=== PATIENT | female | born 1960 | race Caucasian/White ===

== ENCOUNTER 2016-03-21 17:05 | Emergency (ER) | payer OTHER ==
[2016-03-21] MEDS ORDERED: MORPHINE SULFATE 2 MG/ML SYRINGE IVP STA (17:28)
[2016-03-21] MEDS ORDERED: ASPIRIN 81 MG CHEW PO STA (17:28)
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
[2016-03-21 17:45] LABS: Basophils # (A) 0.1 k/uL (0-0.2); Basophils % (A) 0 %; CH 30.2; CHCM 31.7; Eosinophils # (A) 0.1 k/uL (0-0.7); Eosinophils % (A) 1 %; HDW 2.36; HGB 12.5 gm/dL (11.4-16.0); Luc # (Auto) 0.13; Luc % (Auto) 1; Lymphocytes # (A) 4.7 k/uL (1.0-4.8); Lymphocytes % (A) 39 %; MCHC 31.3 g/dL (31.0-37.0); MCV 95.9 fL (80.0-100.0); Mean Platelet Volume 7.3; Monocytes # (A) 0.5 k/uL (0-1.0); Monocytes % (A) 4 %; Neutrophils # (A) 6.6 k/uL (1.3-7.7); Neutrophils % (A) 54 %; RBC 4.18 m/uL (3.80-5.40); RDW 14.9 % (11.5-15.5); WBC 12.2 k/uL (3.8-10.6); WBC (Perox) 12.75
[2016-03-21 17:54] LABS: ALT 26 U/L (9-52); AST 16 U/L (14-36); Alkaline Phosphatase 62 U/L (38-126); Amylase 48 U/L (30-110); Anion Gap 11 mmol/L; Blood Urea Nitrogen 25 mg/dL (7-17); Calcium 9.3 mg/dL (8.4-10.2); Carbon Dioxide 29 mmol/L (22-30); Chloride 103 mmol/L (98-107); Glucose 99 mg/dL (74-99); Magnesium 2.1 mg/dL (1.6-2.3); Non-African American GFR(MDRD) >60 (>60 ml/min/1.73 sqM); Potassium 4.4 mmol/L (3.5-5.1); Sodium 143 mmol/L (137-145); Total Bilirubin 0.3 mg/dL (0.2-1.3); Total Protein 6.9 g/dL (6.3-8.2)
[2016-03-21 18:07] LABS: Creatine Kinase 22 U/L (30-135)
--- NOTE | 2016-03-21 18:08 | XR ---
EXAMINATION TYPE: XR chest 2V DATE OF EXAM: 03/21/2016 6:02 PM COMPARISON: 11/11/2015 HISTORY: Chest pain TECHNIQUE: Frontal and lateral views of the chest are obtained. FINDINGS: Heart and mediastinum are normal. There is slight blunting of left costophrenic angle. The re is hiatal hernia with fluid level. There are no hilar masses. There are chest leads. IMPRESSION: No active cardiopulmonary disease. There is pleural diaphragmatic scarring at the left l gerard base. Hiatal hernia. No change.
[2016-03-21 18:14] LABS: Partial Thromboplastin Time 27.2 sec (22.0-30.0); Prothrombin Time 9.8 sec (9.0-12.0)
[2016-03-21 18:20] LABS: Creatine Kinase MB 0.8 ng/mL (0.0-2.4); Troponin I <0.012 ng/mL (0.000-0.034)
[2016-03-21] MEDS ORDERED: RX INFO: IV CONTRAST WAS GIVEN 1 EACH MISC MISCELLANE PRN (19:41)
--- NOTE | 2016-03-21 20:53 | CT ---
EXAMINATION TYPE: CT chest angio for PE DATE OF EXAM: 03/21/2016 8:32 PM COMPARISON: 10/23/2014 HISTORY: Pt states of chest pains today. CT DLP: 158.9 mGycm Automated exposure control for dose reduction was used. CONTRAST: CT Chest for pulmonary embolism performed with with IV Contrast, patient injected with 75 mL of Omnip aque 350. There are 3-D post processed images. FINDINGS: There is diffuse pulmonary emphysema that is worse in the left upper lobe. There is no evidence of a pulmonary mass. There is subpleural consolidation in the right lower lobe. There is no pleural effusi on. There is a moderate-sized hiatal hernia. Heart size is normal. There is normal contrast opacification of the pulmonary arteries. I see no filling defect. There is n o evidence of aortic aneurysm or dissection. There is no pericardial effusion. IMPRESSION: No evidence of pulmonary embolism. There is diffuse pulmonary emphysema. There is a new pneumonic consolidation in the subpleural right lower lobe compared to old CT scan. Th is is consistent with pneumonia. Moderate-sized hiatal hernia.
[2016-03-21] MEDS ORDERED: LEVOFLOXACIN 750MG-D5W PMX 750 MG in DEXTROSE/WATER 1 150ML.BAG IVPB STA (20:59)
[2016-03-21] MEDS ORDERED: LEVOFLOXACIN 750 MG TAB PO STA (21:01)
[2016-03-21] MEDS ORDERED: HYDROcodone/APAP 5-325MG 1 EACH TAB PO STA (21:43)
[2016-03-21 21:55] VITALS: BP 100/63; PULSE 85; RESP 20; TEMP 97.4
== END 2016-03-21 21:55 | disposition home or self-care (01) ==
LOC: EC 17:05
DX: J18.9 Pneumonia, unspecified organism (principal); J44.9 Chronic obstructive pulmonary disease, unspecified; J45.909 Unspecified asthma, uncomplicated; E11.9 Type 2 diabetes mellitus without complications; E78.5 Hyperlipidemia, unspecified; M19.90 Unspecified osteoarthritis, unspecified site; F31.9 Bipolar disorder, unspecified; F41.0 Panic disorder [episodic paroxysmal anxiety]; F41.9 Anxiety disorder, unspecified; E07.9 Disorder of thyroid, unspecified; M79.7 Fibromyalgia; F17.200 Nicotine dependence, unspecified, uncomplicated; Z88.1 Allergy status to other antibiotic agents; Z88.8 Allergy status to other drugs, medicaments and biological substances; Z86.73 Personal history of transient ischemic attack (TIA), and cerebral infarction without residual deficits; Z79.84 Long term (current) use of oral hypoglycemic drugs; Z86.711 Personal history of pulmonary embolism; Z79.891 Long term (current) use of opiate analgesic; Z79.899 Other long term (current) drug therapy
CPT/HCPCS: 99285; 96374; 36415; 93005; 85379; 80053; 82150; 82550; 82553; 83690; 83735; 84484; 85025; 85610; 85730; 71020; 71275; Q9967; J2270

== ENCOUNTER 2016-03-29 19:03 | Emergency (ER) | payer OTHER ==
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
[2016-03-29 21:32] VITALS: RESP 16
[2016-03-29 22:25] VITALS: BP 117/68; PULSE 78; TEMP 98.2
== END 2016-03-29 22:20 | disposition home or self-care (01) ==
LOC: EC 19:03
DX: F32.9 Major depressive disorder, single episode, unspecified (principal); J45.909 Unspecified asthma, uncomplicated; J44.9 Chronic obstructive pulmonary disease, unspecified; E11.9 Type 2 diabetes mellitus without complications; E78.5 Hyperlipidemia, unspecified; M79.7 Fibromyalgia; E07.9 Disorder of thyroid, unspecified; F41.9 Anxiety disorder, unspecified; G89.29 Other chronic pain; G43.909 Migraine, unspecified, not intractable, without status migrainosus; R45.851 Suicidal ideations; Z79.84 Long term (current) use of oral hypoglycemic drugs; Z79.899 Other long term (current) drug therapy; Z88.8 Allergy status to other drugs, medicaments and biological substances; Z88.1 Allergy status to other antibiotic agents; Z86.73 Personal history of transient ischemic attack (TIA), and cerebral infarction without residual deficits; Z86.711 Personal history of pulmonary embolism; F17.200 Nicotine dependence, unspecified, uncomplicated
CPT/HCPCS: 80306; 82075; 99284

== ENCOUNTER → 2016-12-21 | Outpatient (CLI) | payer OTHER ==
[2016-12-21 11:45] LABS: Blood Urea Nitrogen 24 mg/dL (7-17); Non-African American GFR(MDRD) >60 (>60 ml/min/1.73 sqM)
--- NOTE | 2016-12-21 15:30 | CT ---
EXAMINATION TYPE: CT chest w con DATE OF EXAM: 12/21/2016 COMPARISON: 11/27/2015 HISTORY: Pulmonary nodule CT DLP: 194.40 mGycm, Automated exposure control for dose reduction was used. CONTRAST: Performed injected with 100 ml mL of Omnipaque 300. TECHNIQUE: Axial images were obtained at 5 mm thick sections. Reconstructed images are reviewed on [employer] computer in the coronal plane. FINDINGS: Portion of the thyroid visualized is normal. Emphysematous changes are at the bilateral lungs greater in the upper lung field. Subtle area of groundglass opacities in the posterior right midlung. Series 5 image 21. May be some s treak opacity within the posterior medial left midlung and in the left lung base. Previous density in the posterior lateral right upper lobe has diminished in size and intensity from the comparison. Series 5 image 18 No enlarged mediastinal or hilar adenopathy is evident. The ascending aorta diameter at the level o f the main pulmonary artery is 3.4 cm. The main pulmonary artery diameter at the bifurcation is 2.[address] sections are obtained through the upper abdomen. There is a moderate size hiatal hernia. U pper abdomen is essentially unremarkable. Note is made of a medial mid left renal cyst measuring 3.0 cm and 9 Hounsfield units. This may be somewhat larger than comparison. IMPRESSIONS: 1. Improving right upper lobe architectural distortion. Continued monitoring is recommended. 2. Small area of groundglass opacity posterior right midlung. Continued follow-up is recommended.. 3. Enlarging simple appearing left renal cyst
== END | disposition home or self-care (01) ==
LOC: RADCTMAIN 10:55
PROVIDERS: ATTEND Internal Medicine Hematology & Oncology
DX: R91.8 Other nonspecific abnormal finding of lung field (principal); R91.1 Solitary pulmonary nodule
CPT/HCPCS: 82565; 84520; 71260; Q9967

== ENCOUNTER 2017-12-31 14:13 | Emergency (ER) | payer OTHER ==
[2017-12-31 14:26] VITALS: BP 105/76; PULSE 68; RESP 18; TEMP 98.2
[2017-12-31] MEDS ORDERED: HYDROcodone/APAP 5-325MG 1 EACH TAB PO STA (15:13)
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
--- NOTE | 2017-12-31 15:42 | XR ---
EXAMINATION TYPE: XR lumbar spine 2 or 3V DATE OF EXAM: 12/31/2017 COMPARISON: 09/23/2012 HISTORY: Back pain TECHNIQUE: 3 views FINDINGS: The vertebra have normal alignment. Posterior elements are intact. Sacroiliac joints appear intact. There is no compression fracture. IMPRESSION: Negative lumbar spine exam. No fracture. No significant change.
--- NOTE | 2017-12-31 15:43 | XR ---
EXAMINATION TYPE: XR foot complete LT DATE OF EXAM: 12/31/2017 COMPARISON: NONE HISTORY: Foot pain TECHNIQUE: 3 views FINDINGS: There is moderate plantar calcaneal spurring. Metatarsals appear intact. I see no fracture nor dislocation. There are no erosions. IMPRESSION: Calcaneal spurring. No fracture seen.
--- NOTE | 2017-12-31 15:46 | XR ---
EXAMINATION TYPE: XR wrist complete RT DATE OF EXAM: 12/31/2017 COMPARISON: NONE HISTORY: Pain. Fell down the stairs. TECHNIQUE: 4 views FINDINGS: I see no fracture nor dislocation. Joint spaces are normal. There is some cystic changes in the distal capitate. IMPRESSION: No acute abnormality of the right wrist.
--- NOTE | 2017-12-31 15:47 | XR ---
EXAMINATION TYPE: XR ankle complete LT DATE OF EXAM: 12/31/2017 COMPARISON: NONE HISTORY: Foot and ankle pain TECHNIQUE: 3 views FINDINGS: Ankle mortise is anatomic. I see no fracture nor dislocation. There is a moderate plantar c alcaneal spur. There are small Achilles calcaneal spur. IMPRESSION: Calcaneal spurring. No fracture seen.
== END 2017-12-31 16:58 | disposition home or self-care (01) ==
LOC: EC 14:13
DX: M25.531 Pain in right wrist (principal); M25.572 Pain in left ankle and joints of left foot; M54.5 Low back pain; J44.9 Chronic obstructive pulmonary disease, unspecified; E11.9 Type 2 diabetes mellitus without complications; M79.7 Fibromyalgia; E78.5 Hyperlipidemia, unspecified; M19.90 Unspecified osteoarthritis, unspecified site; E07.9 Disorder of thyroid, unspecified; G43.909 Migraine, unspecified, not intractable, without status migrainosus; F31.9 Bipolar disorder, unspecified; F41.0 Panic disorder [episodic paroxysmal anxiety]; F60.3 Borderline personality disorder; F25.9 Schizoaffective disorder, unspecified; F17.200 Nicotine dependence, unspecified, uncomplicated; Z86.711 Personal history of pulmonary embolism; Z86.73 Personal history of transient ischemic attack (TIA), and cerebral infarction without residual deficits; Z79.51 Long term (current) use of inhaled steroids; Z79.891 Long term (current) use of opiate analgesic; Z79.84 Long term (current) use of oral hypoglycemic drugs; Z79.899 Other long term (current) drug therapy; Z88.1 Allergy status to other antibiotic agents; Z88.8 Allergy status to other drugs, medicaments and biological substances; W10.9XXA Fall (on) (from) unspecified stairs and steps, initial encounter
CPT/HCPCS: 29125; 72100; 99283

== ENCOUNTER → 2018-02-21 | Outpatient (CLI) | payer OTHER ==
--- NOTE | 2018-02-21 12:50 | XR ---
EXAMINATION TYPE: XR chest 2V DATE OF EXAM: 02/21/2018 COMPARISON: 03/21/2016 TECHNIQUE: PA and lateral views submitted. HISTORY: Cough, COPD FINDINGS: Postsurgical change left shoulder. Arthropathy of the right shoulder. Biapical pleural thickening. No consolidation or pneumothorax. Hypertrophic and degenerative change of the spine. Hyperinflation sug gests COPD. IMPRESSION: 1. Findings are suggestive of COPD.
--- NOTE | 2018-02-21 14:37 | BD ---
EXAMINATION TYPE: Axial Bone Density DATE OF EXAM: 02/21/2018 COMPARISON: DEXA bone scan 2014 CLINICAL HISTORY: Postmenopausal female with osteoporosis per order. Height: 5 FT 2IN Weight: 152 FRAX RISK QUESTIONS: Glucocorticoids (More than 3mos): YES (Ex: prednisone, prednisolone, methylprednisolone, dexamethasone, and hydrocortisone). History of Fracture in Adulthood: YES Secondary Osteoporosis: 3. Menopause before 45: YES Current Tobacco Use: YES RISK FACTORS HISTORY OF: Active: YES Postmenopausal woman: PART HYST AGE 29, OVARIES REMOVED AGE 54 MEDICATIONS: Prednisone or other steroids: YES How Lon YEARS NEEDED Thyroid Medications: YES Which medication: SYNTRHOID How Lon YEARS Additional Medications: SYNTHROID,GLUCOPHAGE, Additional History: EXAM MEASUREMENTS: Bone mineral densitometry was performed using the [employer] System. Bone mineral density as measured about the Lumbar spine is: ----- L1-L4(G/cm2): 0.999 T Score Values are as follows: ----- L2: -1.7 ----- L3: -0.6 ----- L4: -2.0 ----- L1-L4: -1.5 Bone mineral density has: DECREASED -3.8 % since study of: 2014 Bone mineral density about the R hip (g/cm2): 0.626 Bone mineral density about the L hip (g/cm2): 0.710 T Score values are as follows: -----R Neck: -3.0 -----L Neck: -2.4 -----R Total: -2.4 -----L Total: -2.0 Bone mineral density has: DECREASED -11.1 % since study of: 2014 IMPRESSION: Osteoporosis (T Score less than -2.5) remains present in the right hip. There remains increased fracture risk and therapy is usually indicated based on age. Re-Screen 1-2 years. NOTE: T-SCORE=SD OF THE YOUNG ADULT MEAN.
--- NOTE | 2018-02-22 11:30 | MM ---
Reason for exam: screening (asymptomatic). Last mammogram was performed 2 years and 4 months ago. History: Patient is postmenopausal. Family history of breast cancer in aunt. Physical Findings: A clinical breast exam by your physician is recommended on an annual basis and results should be correlated with mammographic findings. MG Screening Mammo w CAD Bilateral CC, MLO, and XCCL view(s) were taken. Prior study comparison: October 29, 2015, bilateral MG screening mammo w CAD. November 19, 2013, bilateral MG screening mammo w CAD. There are scattered fibroglandular densities. There are benign appearing round calcifications in the left breast. Asymmetric breast tissue in the left breast, stable. There is no discrete abnormality. ASSESSMENT: Benign, BI-RAD 2 RECOMMENDATION: Routine screening mammogram of both breasts in 1 year.
== END ==
LOC: RADMAMWWP 09:29
PROVIDERS: ATTEND Internal Medicine
DX: Z12.31 Encounter for screening mammogram for malignant neoplasm of breast (principal); M81.0 Age-related osteoporosis without current pathological fracture; Z72.0 Tobacco use
CPT/HCPCS: 71046; 77067; 77080

== ENCOUNTER → 2019-01-18 | Outpatient (CLI) | payer OTHER | END | disposition home or self-care (01) | LOC: LABWHC1 15:11 | PROVIDERS: ATTEND Psychiatry & Neurology Psychiatry | DX: F31.9 Bipolar disorder, unspecified (principal) | CPT/HCPCS: 36415; 80164; 84450; 84460 ==

== ENCOUNTER → 2019-08-26 | Outpatient (CLI) | payer OTHER ==
[2019-08-26 14:56] LABS: Anisocytosis Slight; Basophils % (A) 1 %; Eosinophils # (A) 0.1 k/uL (0-0.7); Eosinophils % (A) 2 %; HCT 40.7 % (34.0-46.0); HGB 12.5 gm/dL (11.4-16.0); Hypochromasia Slight; Lymphocytes # (A) 2.7 k/uL (1.0-4.8); Lymphocytes % (A) 34 %; MCH 28.5 pg (25.0-35.0); MCHC 30.6 g/dL (31.0-37.0); MCV 93.3 fL (80.0-100.0); Mean Platelet Volume 6.8; Monocytes # (A) 0.4 k/uL (0-1.0); Monocytes % (A) 5 %; Neutrophils # (A) 4.4 k/uL (1.3-7.7); Neutrophils % (A) 56 %; Platelet Count 377 k/uL (150-450); RBC 4.36 m/uL (3.80-5.40); RDW 16.3 % (11.5-15.5); WBC 7.8 k/uL (3.8-10.6)
[2019-08-27 02:23] LABS: ALT 29 U/L (8-44); AST 23 U/L (13-35); African American GFR (CKD) 109.1 (60.0-200.0); Albumin/Globulin Ratio 1.76 (1.60-3.17); Alkaline Phosphatase 85 U/L (41-126); BUN/Creat Ratio 15.71 Ratio (12.00-20.00); Bilirubin, Conjugated <0.20 mg/dL (0.20-0.40); Calcium 9.4 mg/dL (8.7-10.3); Carbon Dioxide 28.1 mmol/L (21.6-31.8); Chloride 103 mmol/L (96-109); Chol/HDL Ratio 4.33; Cholesterol 277 mg/dL (0-200); Globulin 2.5 g/dL (1.6-3.3); Glucose 97 mg/dL (70-110); LDL Cholesterol,Calculated 170.2 mg/dL (0.0-131.0); Non-African American GFR(CKD) 94.2 (60.0-200.0); Potassium 4.6 mmol/L (3.5-5.5); Sodium 139 mmol/L (135-145); Total Bilirubin 0.2 mg/dL (0.3-1.2); Total Protein 6.9 g/dL (6.2-8.2)
== END | disposition home or self-care (01) ==
LOC: LABWHC1 13:18
PROVIDERS: ATTEND Nurse Practitioner Family
DX: E78.00 Pure hypercholesterolemia, unspecified (principal); E78.5 Hyperlipidemia, unspecified; Z51.81 Encounter for therapeutic drug level monitoring; E55.9 Vitamin D deficiency, unspecified
CPT/HCPCS: 36415; 80053; 80061; 82248; 82306; 84439; 84443; 85025

== ENCOUNTER → 2019-10-14 | Outpatient (CLI) | payer OTHER ==
[2019-10-15 01:29] LABS: Valproic Acid (Depakene) 70.4 ug/mL (50.0-100.0)
== END | disposition home or self-care (01) ==
LOC: LABWHC1 12:37
PROVIDERS: ATTEND Psychiatry & Neurology Psychiatry
DX: F31.9 Bipolar disorder, unspecified (principal)
CPT/HCPCS: 36415; 80164; 84450; 84460

== ENCOUNTER → 2020-09-25 | Outpatient (CLI) | payer OTHER ==
--- NOTE | 2020-09-27 09:24 | CTL ---
EXAMINATION TYPE: CT Low Dose Lung DATE OF EXAM ORDERED: 09/25/2020 COMPARISON: 12/21/2016 HISTORY: . Low Dose CT Lung Screening CT DLP: 86.[address] CTDI: 2.40 mGy IV CONTRAST USED: None. SCREENING VISIT: First visit COMPARISON: None. TECHNIQUE: Low dose computed tomography scan was performed through the chest at 1 millimeter thick se ctions and reconstructed images in the coronal plane at [address] DIAGNOSTIC QUALITY: Satisfactory FINDINGS: LUNG NODULES: Not presentLeft lung: no nodules identified.Right lung: no nodules identified. LUNGS: COPD: Severity: Moderate upper lobe emphysematous changes. Fibrosis: Severity:None Lymph nodes: None Other findings: None RIGHT PLEURAL SPACE: Effusion: None Calcification: None Thickening: None Pneumothorax: None LEFT PLEURAL SPACE: Effusion: None Calcification: None Thickening: Stable left lower lobe pleural thickening. Pneumothorax: None HEART: Heart Size: Mildly enlarged Coronary calcification: Mild Pericardial effusion: None OTHER FINDINGS: Upper abdomen: Fixed hiatal hernia demonstrated. Bony thorax: Degenerative changes Supraclavicular region: No significant abnormalityOther: No significant abnormalityI IMPRESSION: Emphysematous change without suspicious nodule. FOLLOW UP CT CHEST RECOMMENDATION: Follow-up screening in one year. Smoking cessation advised. CT LUNG RAD: LUNG RAD CATEGORY 1 negative
== END | disposition home or self-care (01) ==
LOC: RADCTMAIN 17:13
PROVIDERS: ATTEND Family Medicine
DX: Z12.2 Encounter for screening for malignant neoplasm of respiratory organs (principal); J43.9 Emphysema, unspecified
CPT/HCPCS: 71271

== ENCOUNTER → 2020-11-27 | Outpatient (CLI) | payer OTHER ==
[2020-11-27 23:18] LABS: Basophils # (A) 0.04 X 10*3/uL (0.00-0.10); Basophils % (A) 0.3 %; Eosinophils # (A) 0.06 X 10*3/uL (0.04-0.35); Eosinophils % (A) 0.5 %; HCT 39.9 % (37.2-46.3); HGB 12.5 g/dL (12.0-15.0); Lymphocytes # (A) 3.49 X 10*3/uL (0.90-5.00); Lymphocytes % (A) 29.7 %; MCH 27.8 pg (27.0-32.0); MCHC 31.3 g/dL (32.0-37.0); MCV 88.9 fL (80.0-97.0); Mean Platelet Volume 9.8 fL (9.5-12.2); Monocytes # (A) 0.37 X 10*3/uL (0.20-1.00); Monocytes % (A) 3.1 %; Neutrophils # (A) 7.74 X 10*3/uL (1.80-7.70); Neutrophils % (A) 65.9 %; Platelet Count 395 X 10*3/uL (140-440); RBC 4.49 X 10*6/uL (4.10-5.20); RDW 16.4 % (11.5-14.5); WBC 11.76 X 10*3/uL (4.50-10.00)
[2020-11-28 00:49] LABS: Hemoglobin A1C 9.7 % (4.0-6.0)
[2020-11-28 04:30] LABS: African American GFR (CKD) 91.6 (60.0-200.0); Albumin 4.9 g/dL (3.80-4.90); Albumin/Globulin Ratio 2.04 (1.60-3.17); Anion Gap 10.6 mmol/L (4.00-12.00); BUN/Creat Ratio 11.25 Ratio (12.00-20.00); Calcium 9.6 mg/dL (8.7-10.3); Carbon Dioxide 23.4 mmol/L (21.6-31.8); Chol/HDL Ratio 3.12; Globulin 2.4 g/dL (1.6-3.3); LDL Cholesterol,Calculated 81.4 mg/dL (0.0-131.0); Potassium 4.3 mmol/L (3.5-5.5); Total Bilirubin 0.4 mg/dL (0.3-1.2); Total Protein 7.3 g/dL (6.2-8.2); VLDL Calculation 26.6 mg/dL (5.00-40.00)
== END | disposition home or self-care (01) ==
LOC: LABWHC1 15:00
PROVIDERS: ATTEND Family Medicine
DX: Z00.00 Encounter for general adult medical examination without abnormal findings (principal); E11.9 Type 2 diabetes mellitus without complications
CPT/HCPCS: 36415; 80053; 80061; 83036; 84443; 85025; 87522

== ENCOUNTER → 2021-01-14 | Outpatient (CLI) | payer OTHER ==
--- NOTE | 2021-01-18 10:10 | MM ---
Reason for exam: screening (asymptomatic). Last mammogram was performed 2 years and 11 months ago. History: Patient is postmenopausal. Family history of breast cancer in aunt. Took hormonal contraceptives for 1 year. Physical Findings: A clinical breast exam by your physician is recommended on an annual basis and results should be correlated with mammographic findings. MG Screening Mammo w CAD Bilateral CC and MLO view(s) were taken. Prior study comparison: February 21, 2018, bilateral MG screening mammo w CAD. October 29, 2015, bilateral MG screening mammo w CAD. There are scattered fibroglandular densities. Global asymmetry 12 o'clock left breast. No significant changes when compared with prior studies. ASSESSMENT: Benign, BI-RAD 2 RECOMMENDATION: Routine screening mammogram of both breasts in 1 year.
== END | disposition home or self-care (01) ==
LOC: RADMAMWWP 14:40
PROVIDERS: ATTEND Family Medicine
DX: Z12.31 Encounter for screening mammogram for malignant neoplasm of breast (principal); Z80.3 Family history of malignant neoplasm of breast; Z78.0 Asymptomatic menopausal state
CPT/HCPCS: 77067

== ENCOUNTER → 2021-07-05 | Outpatient (CLI) | payer OTHER ==
--- NOTE | 2021-07-06 02:03 | MR ---
EXAMINATION TYPE: MR knee LT wo con DATE OF EXAM: 07/05/2021 COMPARISON: None HISTORY: Left knee pain. Multiplanar multiecho imaging of the left knee without contrast. There is mild knee joint effusion. Anterior and posterior cruciate ligaments are intact. The patella is intact. There is mild narrowing of the medial joint space. The collateral ligaments are intact. Th ere is horizontal tear of the posterior horn of the medial meniscus that extends to the inferior surf gudelia. The lateral meniscus appears intact. No evidence of a fracture. There is mild subcutaneous edema anterior to the patella. IMPRESSION: There is horizontal tear of the posterior horn medial meniscus. No evidence of ligamentous tear. Knee joint effusion and mild osteoarthritis in the medial joint space. Subcutaneous anterior edema.
== END | disposition home or self-care (01) ==
LOC: RADMRIMAIN 18:25
PROVIDERS: ATTEND Orthopaedic Surgery
DX: M17.12 Unilateral primary osteoarthritis, left knee (principal); M23.322 Other meniscus derangements, posterior horn of medial meniscus, left knee

== ENCOUNTER → 2021-08-20 | Outpatient (CLI) | payer OTHER ==
--- NOTE | 2021-08-21 05:29 | MR ---
EXAMINATION TYPE: MR lumbar spine wo con DATE OF EXAM: 08/20/2021 COMPARISON: None HISTORY: Low back pain that radiates down both legs. Multiplanar multiecho imaging of the lumbar spine with no contrast. Lumbar vertebrae have normal alignment. Disc spaces are fairly normal for age. There is a small poste rior disc bulge at L5-S1. There is developmentally adequate spinal canal. No spinal stenosis. Lumbar nerve roots appear fairly normal. There is no neural foraminal narrowing. No evidence of focal bone d estruction. No lumbar paraspinal mass. No compression fracture. There is 3 cm cortical cyst medial le ft kidney. IMPRESSION: Small posterior L5-S1 disc bulging. No spinal stenosis. No fracture.
== END | disposition home or self-care (01) ==
LOC: RADMRIMAIN 19:29
PROVIDERS: ATTEND Nurse Practitioner Family
DX: M51.17 Intervertebral disc disorders with radiculopathy, lumbosacral region (principal)
CPT/HCPCS: 72148

== ENCOUNTER → 2021-09-28 | Outpatient (CLI) | payer OTHER ==
[2021-09-28 19:05] LABS: ALT 18 U/L (8-44); AST 24 U/L (13-35); African American GFR (CKD) 108.1 (60.0-200.0); Albumin 4.4 g/dL (3.8-4.9); Albumin/Globulin Ratio 1.65 (1.60-3.17); Alkaline Phosphatase 92 U/L (41-126); BUN/Creat Ratio 10.35 Ratio (12.00-20.00); Blood Urea Nitrogen 7.1 mg/dL (9.0-27.0); Calcium 9.5 mg/dL (8.7-10.3); Carbon Dioxide 24.5 mmol/L (20.0-27.5); Chloride 102 mmol/L (96-109); Chol/HDL Ratio 4.35 Ratio; Globulin 2.7 g/dL (1.6-3.3); Glucose 125 mg/dL (70-110); LDL Cholesterol,Calculated 87.6 mg/dL (0.0-131.0); Non-African American GFR(CKD) 93.3 (60.0-200.0); Potassium 4.7 mmol/L (3.5-5.5); Sodium 142 mmol/L (135-145); Total Bilirubin <0.15 mg/dL (0.30-1.20); Total Protein 7.1 g/dL (6.2-8.2)
[2021-09-28 19:18] LABS: Basophils # (A) 0.03 X 10*3/uL (0.00-0.10); Basophils % (A) 0.3 %; Eosinophils # (A) 0.07 X 10*3/uL (0.04-0.35); Eosinophils % (A) 0.8 %; HCT 36.8 % (37.2-46.3); HGB 10.5 g/dL (12.0-15.0); Immature Grans, Automated 0.3 %; Lymphocytes # (A) 2.68 X 10*3/uL (0.90-5.00); Lymphocytes % (A) 28.8 %; MCH 23.6 pg (27.0-32.0); MCHC 28.5 g/dL (32.0-37.0); MCV 82.7 fL (80.0-97.0); Mean Platelet Volume 9.4 fL (9.5-12.2); Monocytes % (A) 4.3 %; NRBC Per 100 WBC 0 /100 WBCS (0.0-0.0); Neutrophils # (A) 6.09 X 10*3/uL (1.80-7.70); Neutrophils % (A) 65.5 %; Platelet Count 463 X 10*3/uL (140-440); RBC 4.45 X 10*6/uL (4.10-5.20); RDW 19.2 % (11.5-14.5)
[2021-09-28 19:44] LABS: Valproic Acid (Depakene) 52.3 ug/mL (50.0-100.0)
== END | disposition home or self-care (01) ==
LOC: LABWHC1 10:53
PROVIDERS: ATTEND Family Medicine
DX: Z00.00 Encounter for general adult medical examination without abnormal findings (principal); E78.2 Mixed hyperlipidemia; E03.9 Hypothyroidism, unspecified; F25.0 Schizoaffective disorder, bipolar type
CPT/HCPCS: 36415; 80053; 80061; 80164; 83036; 84443; 85025

== ENCOUNTER → 2022-02-22 | Outpatient (CLI) | payer OTHER ==
--- NOTE | 2022-02-23 09:04 | XR ---
EXAMINATION TYPE: XR shoulder complete LT DATE OF EXAM: 02/22/2022 COMPARISON: NONE HISTORY: Pain TECHNIQUE: Three views are submitted. FINDINGS: The osseous structures are intact. There is no acute fracture or dislocation. The AC joint is widen ed which may be postsurgical. There is postoperative change involving the humeral head suggestive of rotator cuff surgery. IMPRESSION: 1. No acute fracture. Postsurgical changes involving the left shoulder. Widening of the left AC joint likely postsurgical correlate clinically.
--- NOTE | 2022-02-23 09:07 | XR ---
EXAMINATION TYPE: XR cervical spine comp DATE OF EXAM: 02/22/2022 COMPARISON: NONE HISTORY: Pain TECHNIQUE: Four views are submitted. FINDINGS: The odontoid is intact. There are no compression deformities. The prevertebral soft tissue structur es are within normal limits. Large hypertrophic spurs are seen anteriorly. There is diffuse osteopen ia. Facet arthropathy at all levels with degenerative disc disease particularly noted at C5-C6 with p osterior spondylosis. Suspect bilateral foraminal encroachment at this level. IMPRESSION: 1. Severe degenerative disc disease C5-C6 with bilateral foraminal protrusions suspected. 2. multilevel facet arthropathy recommend follow-up MRI. 3. Diffuse osteopenia.
== END | disposition home or self-care (01) ==
LOC: RADXRMAIN 16:16
PROVIDERS: ATTEND Family Medicine
DX: M47.812 Spondylosis without myelopathy or radiculopathy, cervical region (principal); M50.322 Other cervical disc degeneration at C5-C6 level; M85.88 Other specified disorders of bone density and structure, other site; M25.512 Pain in left shoulder
CPT/HCPCS: 72050

== ENCOUNTER → 2022-12-30 | Outpatient (CLI) | payer OTHER ==
--- NOTE | 2022-12-30 14:42 | XR ---
EXAMINATION TYPE: XR chest 2V DATE OF EXAM: 12/30/2022 2:37 PM COMPARISON: Chest radiographs from 02/21/2018 TECHNIQUE: XR chest 2V Frontal and lateral views of the chest. CLINICAL INDICATION:Female, 62 years old with history of J44.1; FINDINGS: Lungs/Pleura: There is no evidence of pleural effusion, focal consolidation, or pneumothorax. Chroni c senescent parenchymal change. Hyperinflation with increased AP diameter. Pulmonary vascularity: Unremarkable. Heart/mediastinum: Cardiomediastinal silhouette is unremarkable. Atherosclerotic calcifications are seen in the aorta. Musculoskeletal: No acute osseous pathology. Degenerative changes of the thoracic spine. Orthopedic a nchor within the left humeral head. IMPRESSION: 1. No acute cardiopulmonary disease/process. 2. Possible COPD.
[2022-12-31 00:56] LABS: ALT 20 U/L (8-44); AST 11 U/L (13-35); Albumin 4.6 d/dL (3.8-4.9); Albumin/Globulin Ratio 1.59 Ratio (1.60-3.17); Alkaline Phosphatase 92 U/L (41-126); BUN/Creat Ratio 24.67 Ratio (12.00-20.00); Blood Urea Nitrogen 14.8 mg/dL (9.0-27.0); Calcium 10.7 mg/dL (8.7-10.3); Carbon Dioxide 22.3 mmol/L (21.6-31.8); Chloride 102 mmol/L (96-109); Globulin 2.9 d/dL (1.6-3.3); Glucose 148 mg/dL (70-110); Potassium 4.8 mmol/L (3.5-5.5); Sodium 142 mmol/L (135-145); Total Bilirubin <0.2 mg/dL (0.3-1.2); Total Protein 7.5 d/dL (6.2-8.2)
[2022-12-31 01:39] LABS: Basophils # (A) 0.01 X 10*3/uL (0.00-0.10); Basophils % (A) 0.1 %; Eosinophils # (A) 0 X 10*3/uL (0.04-0.35); Eosinophils % (A) 0 %; HCT 41.5 % (37.2-46.3); HGB 12.1 d/dL (12.0-15.0); Lymphocytes # (A) 2.75 X 10*3/uL (0.90-5.00); Lymphocytes % (A) 22.4 %; MCH 23.4 pg (27.0-32.0); MCHC 29.2 d/dL (32.0-37.0); MCV 80.3 FL (80.0-97.0); Mean Platelet Volume 9.3 FL (9.5-12.2); Monocytes # (A) 0.83 X 10*3/uL (0.20-1.00); Monocytes % (A) 6.8 %; NRBC Per 100 WBC 0 X 10*3/uL (0.00-0.01); Neutrophils # (A) 8.62 X 10*3/uL (1.80-7.70); Neutrophils % (A) 70.2 %; Platelet Count 561 X 10*3/uL (140-440); RBC 5.17 X 10*6/uL (4.10-5.20); RDW 20.6 % (11.5-14.5); WBC 12.27 X 10*3/uL (4.50-10.00)
== END | disposition home or self-care (01) ==
LOC: LABWHC1 14:15
PROVIDERS: ATTEND Family Medicine
DX: J44.1 Chronic obstructive pulmonary disease with (acute) exacerbation (principal)
CPT/HCPCS: 36415; 71046; 80053; 85025

== ENCOUNTER → 2023-01-27 | Outpatient (CLI) | payer OTHER ==
--- NOTE | 2023-01-30 07:54 | MM ---
Reason for Exam: Screening (asymptomatic). Last mammogram was performed 2 year(s) and 0 month(s) ago. Patient History: Menarche at age 8. First Full-Term at age 18. Left ovary removed at age 29. Right ovary removed at age 29. Hysterectomy at age 29. Postmenopausal. Patient used Hormonal Contraceptives for 1 year. Maternal aunt had breast cancer. Risk Values: Cyndy 5 year model risk: 1.6%. NCI Lifetime model risk: 6.4%. Prior Study Comparison: 10/29/2015 Bilateral Screening Mammogram, [facility]. 02/21/2018 Bilateral Screening Mammogram, [facility]. 01/14/2021 Bilateral Screening Mammogram, [facility]. Tissue Density: There are scattered fibroglandular densities. Findings: Analyzed By CAD. There is no suspicious group of microcalcifications or new suspicious mass. Benign-appearing calcifications bilaterally. Overall Assessment: Benign, BI-RAD 2 Management: Screening Mammogram of both breasts in [address] [facility] will attempt to contact patient to return for supplemental views and ultrasound if indicated. Patient should continue monthly self-breast exams. A clinical breast exam by your physician is recommended on an annual basis. This exam should not preclude additional follow-up of suspicious palpable abnormalities. Note on Cyndy scores and lifetime risk: 1. A Cyndy score greater than 3% is considered moderate risk. If this is the case, consider specialist referral to assess eligibility for a risk reducing agent. 2. If overall lifetime risk for the development of breast cancer is 20% or higher, the patient may qualify for future screening with alternating mammogram and breast MRI. Electronically signed and approved by: Mike Cormier DO
== END | disposition home or self-care (01) ==
LOC: RADMAMWWP 16:12
PROVIDERS: ATTEND Family Medicine
DX: Z12.31 Encounter for screening mammogram for malignant neoplasm of breast (principal); E78.2 Mixed hyperlipidemia; Z78.0 Asymptomatic menopausal state; Z80.3 Family history of malignant neoplasm of breast
CPT/HCPCS: 77067

== ENCOUNTER 2023-06-22 16:45 | Emergency (ER) | payer OTHER ==
[2023-06-22 17:16] VITALS: RESP 18
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
--- NOTE | 2023-06-22 18:35 | XR ---
Left wrist. HISTORY: Pain following trauma COMPARISON: 03/28/2014. TECHNIQUE: 4 views left wrist are obtained. FINDINGS: Carpal bones and articulations are normal. The distal radius and ulna are intact. No soft tissue abno rmality. There is no soft tissue calcification or foreign body. IMPRESSION: No significant amount is seen of the left wrist.
--- NOTE | 2023-06-22 18:36 | XR ---
Left hand HISTORY: Pain findings COMPARISON: None. TECHNIQUE: 3 views left hand were obtained. There is a mildly displaced fracture involving the proximal aspect of the fifth metacarpal with mild soft tissue swelling. There are mild degenerative changes of the DIP joints. There are no dislocations of the digits. There is no radiopaque foreign body. IMPRESSION: Fracture of the fifth metacarpal as described above.
[2023-06-22] MEDS: ACETAMINOPHEN TAB 325 MG TAB PO STA (19:17)
[2023-06-22] MEDS: KETOROLAC 15 MG/ML 1 ML VIAL IM STA (19:18)
[2023-06-22] MEDS: ACET/COD 300 MG/30 MG STARTER PACK 6 TAB BTL PO STA (19:20)
[2023-06-22 19:52] VITALS: BP 122/78; PULSE 94; TEMP 98.2
== END 2023-06-22 19:27 | disposition home or self-care (01) ==
LOC: EC 16:45
DX: S62.307A Unspecified fracture of fifth metacarpal bone, left hand, initial encounter for closed fracture (principal); F12.90 Cannabis use, unspecified, uncomplicated; Z88.1 Allergy status to other antibiotic agents; Z88.8 Allergy status to other drugs, medicaments and biological substances; W10.9XXA Fall (on) (from) unspecified stairs and steps, initial encounter
CPT/HCPCS: 99284; 96372; 73110; 73130; 72125; 70486; 70450; 29125; J1885

== ENCOUNTER 2023-11-13 20:13 | Emergency (ER) | payer MEDICARE, OTHER ==
[2023-11-13 21:03] VITALS: TEMP 97.9
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
[2023-11-13] MEDS: MORPHINE SULFATE 4 MG/ML SYRINGE IM STA (21:37)
--- NOTE | 2023-11-13 21:40 | XR ---
EXAMINATION TYPE: XR ribs RT w pa chest xray DATE OF EXAM: 11/13/2023 9:32 PM CLINICAL INDICATION: Female, 63 years old with history of fall injury; H COMPARISON: None TECHNIQUE: XR ribs RT w pa chest xray; Frontal and oblique views of the ribs with frontal chest radio graph. FINDINGS/IMPRESSION: Limited evaluation due to overlapping structures. There is at least one fracture identified involving rib 6 which is minimally displaced. Possible rib 5 fracture also present.
[2023-11-13] MEDS: HYDROmorphone 1 MG/ML 1 ML SYRINGE IVP STA (22:35)
[2023-11-13] MEDS ORDERED: HYDROmorphone 1 MG/ML 1 ML SYRINGE IM STA (22:47)
[2023-11-13 22:56] VITALS: BP 138/69; PULSE 85; RESP 16
== END 2023-11-13 22:33 | disposition home or self-care (01) ==
LOC: EC 20:13
DX: S22.31XA Fracture of one rib, right side, initial encounter for closed fracture (principal); F17.200 Nicotine dependence, unspecified, uncomplicated; Z88.1 Allergy status to other antibiotic agents; Z88.8 Allergy status to other drugs, medicaments and biological substances; W01.0XXA Fall on same level from slipping, tripping and stumbling without subsequent striking against object, initial encounter
CPT/HCPCS: 71101; 99284; 96372 ×2; J2270; J1170

== ENCOUNTER → 2023-12-25 | Outpatient (CLI) | payer MEDICARE, OTHER ==
--- NOTE | 2023-12-30 22:25 | CTL ---
EXAMINATION TYPE: CT Low Dose Lung DATE OF EXAM ORDERED: 12/25/2023 HISTORY: 63-year-old female Z1 2.2, F1 7.210, current smoker with 57 pack-year history. Lung cancer s creening CT DLP: 85.[address] CTDI: 2.4 mGy Automated exposure control for dose reduction was used. SCREENING VISIT: Annual follow-up COMPARISON: 09/25/2020 TECHNIQUE: Low dose computed tomography scan was performed through the chest at 1 mm thick sections a nd reconstructed images in multiple planes at 1 mm and [address] DIAGNOSTIC QUALITY: Satisfactory FINDINGS: The heart is normal size without pericardial effusion. Aorta normal caliber with mild atherosclerotic arch calcifications and conventional arch vessel branc tim anatomy. Nonenlarged mediastinal lymph nodes. No thoracic lymphadenopathy by CT size criteria. Mild diffuse bronchial wall thickening. Moderate emphysematous changes. Biapical pleural parenchymal scarring. Additional scattered irregular opacities suggesting scarring, for example, lateral right up per lobe measuring 9 mm unchanged. Pleural parenchymal scarring at the left lung base is unchanged. 8 mm subpleural pulmonary nodule posteromedial right upper lobe, axial image 69 is new. No other suspicious pulmonary nodules are seen. There are postsurgical changes at the GE junction but with a moderate size hiatal hernia demonstrated . Visualized upper abdomen otherwise shows no gross abnormality. Bones: Accentuated thoracic kyphosis. DISH lower thoracic spine. IMPRESSION: 1. LungRADS Category 4A (suspicious, 5-15% chance of malignancy). New 8 mm subpleural pulmonary nodul e posterior right upper lobe. 2. COPD with moderate emphysema and scattered pleural parenchymal scarring is otherwise unchanged. Re commend smoking cessation. 3. Postsurgical change at the GE junction with redemonstrated moderate-sized hiatal hernia. If there is previous hiatal hernia repair, correlate for any recurrent symptoms. Consider referring the patien t back to their surgeon. CT LUNG RAD AND CT CHEST RECOMMENDATION: Lung-Rad 4A Suspicious: Follow-up 3 month LDCT or PET/CT may be used when there is a > 8 mm solid component. S Modifier (other clinically significant findings): None [facility], , 12/30/2023 10:23 PM
== END | disposition home or self-care (01) ==
LOC: RADCTMAIN 17:11
PROVIDERS: ATTEND Family Medicine
DX: Z12.2 Encounter for screening for malignant neoplasm of respiratory organs (principal); F17.210 Nicotine dependence, cigarettes, uncomplicated; R91.1 Solitary pulmonary nodule; J43.9 Emphysema, unspecified; K44.9 Diaphragmatic hernia without obstruction or gangrene
CPT/HCPCS: 71271

== ENCOUNTER → 2024-01-29 | Outpatient (CLI) | payer MEDICARE, OTHER ==
--- NOTE | 2024-01-30 17:34 | BD ---
EXAMINATION TYPE: Axial Bone Density DATE OF EXAM: 01/29/2024 CLINICAL HISTORY: 63 years old Female. ICD-10 CODE: Z780 POST DEWEY , Additional History: Height: 61.5 in Weight: 152 lbs FRAX RISK QUESTIONS: History of Fracture in Adulthood: rib fx age 63, lt wrist fx age 63, rt wrist fx age 58 Secondary Osteoporosis: 3. Menopause before 43: partial hysterectomy age 30 Current Tobacco Use: yes RISK FACTORS HISTORY OF: History of Wrist Fracture: lt wrist fx age 63, rt wrist fx age 58 MEDICATIONS: Thyroid Medications: yes Which medication: Levothyroxine How Lon+ years EXAM MEASUREMENTS: Bone mineral densitometry was performed using the [employer] System. Bone mineral density as measured about the Lumbar spine is: ----- L1-L4(G/cm2): 0.983 T Score Values are as follows: ----- L1: -2.5 ----- L2: -1.7 ----- L3: -0.9 ----- L4: -1.8 ----- L1-L4: -1.6 Z Score Values are as follows: ----- L1: -1.1 ----- L2: -0.2 ----- L3: 0.6 ----- L4: -0.4 ----- L1-L4: -0.2 Bone mineral density has: Decreased -1.6% since study of: 02/21/2018 Bone mineral density about the R hip (g/cm2): 0.674 Bone mineral density about the L hip (g/cm2): 0.735 T Score values are as follows: -----R Neck: -2.9 -----L Neck: -2.3 -----R Total: -2.6 -----L Total: -2.2 Z Score values are as follows: -----R Neck: -1.6 -----L Neck: -0.9 -----R Total: -1.5 -----L Total: -1.1 Bone mineral density has: Decreased -4.2% since study of: 02/21/2018 FRAX%s: The graph provided illustrates a 28.3% chance for a major osteoporotic fx and a 12.1% chance for the hips probability for fx in 10 years time. IMPRESSION: Osteoporosis (T Score less than -2.5). There is increased fracture risk and therapy is usually indicated based on age. Re-Screen 1-2 years. NOTE: T-SCORE=SD OF THE YOUNG ADULT MEAN. [facility], , 01/30/2024 5:32 PM
--- NOTE | 2024-01-31 15:20 | MM ---
Reason for Exam: Screening (asymptomatic). Last screening mammogram was performed 12 month(s) ago. Patient History: Menarche at age 8. First Full-Term at age 18. Left ovary removed at age 29. Right ovary removed at age 29. Hysterectomy at age 29. Postmenopausal. Patient used Hormonal Contraceptives for 1 year. Maternal aunt had breast cancer, age 30. Risk Values: Cyndy 5 year model risk: 1.6%. NCI Lifetime model risk: 6.2%. Prior Study Comparison: 02/21/2018 Bilateral Screening Mammogram, [facility]. 01/14/2021 Bilateral Screening Mammogram, [facility]. 01/27/2023 Bilateral MG screening mammo w CAD, [facility]. Tissue Density: There are scattered areas of fibroglandular density. Findings: Analyzed By CAD. Unchanged global asymmetry and vascular calcifications on the left. There is no suspicious group of microcalcifications or new suspicious mass in either breast. Overall Assessment: Benign, BI-RAD 2 Management: Screening Mammogram of both breasts in 1 year. Patient should continue monthly self-breast exams. A clinical breast exam by your physician is recommended on an annual basis. This exam should not preclude additional follow-up of suspicious palpable abnormalities. Note on Cyndy scores and lifetime risk: 1. A Cyndy score greater than 3% is considered moderate risk. If this is the case, consider specialist referral to assess eligibility for a risk reducing agent. 2. If overall lifetime risk for the development of breast cancer is 20% or higher, the patient may qualify for future screening with alternating mammogram and breast MRI. [facility], , 01/31/2024 3:17 PM. Electronically signed and approved by: Carolina Hackett M.D. Radiologist
== END | disposition home or self-care (01) ==
LOC: RADBDWWP 16:13
PROVIDERS: ATTEND Family Medicine
DX: Z12.31 Encounter for screening mammogram for malignant neoplasm of breast (principal); Z78.0 Asymptomatic menopausal state; Z80.3 Family history of malignant neoplasm of breast; Z90.721 Acquired absence of ovaries, unilateral; R92.323 Mammographic fibroglandular density, bilateral breasts
CPT/HCPCS: 77067; 77080

== ENCOUNTER → 2024-05-30 | Outpatient (CLI) | payer MEDICARE, OTHER ==
[2024-05-30 14:47] VITALS: BP 130/96; PULSE 99; RESP 18; TEMP 97.5
--- NOTE | 2024-05-30 15:18 | P.PAINPG ---
Objective - Vital Signs Vital signs: Intake & Output 05/29/24 05/30/24 05/30/24 18:59 06:59 18:59 Weight 66.224 kg PQRS Measure Charge Sheet Comment: HISTORY OF PRESENT ILLNESS: A 63 yr old female as a referral from Dr Barbour presents today w severe and chronic secondary to radiculopathy, spondylosis and facet arthropathy without myelopathy for evaluation. Pt states pain level is provoked at /10 in intensity, constant, localized in the lumbar spine, predominantly axial, achy in character w occasional shooting pain towards the BL feet. Pain is provoked by over activity. Pain is alleviated by PT x 6 wks which ended in 2023, physician guided home stretches daily since Fall 2023, medications, topical, Cannabis, heat, use of a walker for ambulatory assistance, repositioning and rest . Oswestry axial pain score at 27. PMH: OA, Asthma, COPD, CVA, GERD, NIDDM II, Fibromyalgia, Hyperlipidemia, PE, Hypothyroidism, HH, Borderline/ Bipolar/ Schizoaffective disorder PSH: Appendectomy, Hysterectomy, Joint Replacement, Stomach Surgery, Abd Abscess Evacuation, L Foot Surgery, Bladder Suspension x2, L RCT Repair, Thoracentesis, Umbilical Hernia Repair, Ovarian Cystectomies x4 SH: Daily tobacco use, No ETOH abuse, Cannabis use FH: [place]- [place], [place]. Fa- unknown malignancy, . All: See list Meds: See list incl Flexeril, Lidoderm, Cannabis REVIEW OF ORGAN SYSTEMS: CONSTITUTIONAL: No fevers or chills. No recent weight loss. NEUROLOGICAL: + numbness and tingling along the distal extremities. No seizure disorders or headaches. MUSCULOSKELETAL: + pain PSYCHIATRIC: Denies current depression or suicidal thoughts. Physical Examinations : Constitutional : Cooperative , not in acute distress . Neurologic : Cranial nerve II to XII intact. No focal neurological deficits. Psychiatric : alert & oriented x 3. Matching mood & appropriate affect. Judgment & insight intact. Musculoskeletal : Cervical Spine Motor strength in the deltoid and biceps: Normal right side. Normal Left side Motor strength biceps and the wrist extensors: Normal right side . Normal left side Motor strength in the triceps muscle: Normal right side. Normal left side Deep tendon reflexes: Normal at the biceps. Normal at Brachioradialis. Normal at triceps Vertebral body tenderness to deep palpation over Cervical facet loading test: positive bilaterally Spurling test: positive bilaterally Neck distraction test: positive bilaterally Hernando sign: positive bilaterally Lumbar spine Motor strength lower extremities ,thigh and legs 5/5 Right side , 5/5 Left side Deep tendon reflexes : Normal Knee Jerk. Normal Ankle Jerk Vertebral body tenderness over L5 Higgins Test positive BL L5-S1 Lumbar facet Loading Test: positive Right / positive Left Range of motion of the lumbar spine Flexion 30 degrees, extension 10 degrees Straight Leg Raise test: Left/ Right positive at degrees Makayla test: positive right / positive left. Severe tenderness over the Sacroiliac joint on the Right / Left sides Gaenslen test: positive bilaterally Seated flexion test: positive bilaterally. Sacral spine : Severe tenderness over the Sacroiliac joint: right side / left side Range of motion: Flexion of the lumbar spine <60 degrees Range of motion: Extension of the lumbar spine <20 degrees Gaenslen's Test positive Makayla test: positive right side / left side Thigh Thrust Test Sacral Thrust Test Imaging: CT non contrast brain/ Cervical from 06/22/23 reviewed MRI non contrast lumbar spine from 08/20/21 reviewed Assessment/ Plan : C5-C7 spondylosis, L5-S1 radiculopathy Recommendation of MARIA D L5-S1 #1. Risks, benefits of procedure discussed and patient verbalized understanding. Admits to anti- coagulant use or medical history of diabetes. Protocol for discontinuation/ continuation of medications gilma procedure discussed. All questions answered. I have spent greater than 30 minutes on patient care today. Dr Brice was available by phone for the evaluation of this patient. The time was used to review the medical records including relevant urine studies and Prescription history (MAPs), review of the available imaging, evaluation and examination of the patient, coordination of care with the medical staff and if applicable referring physicians, as well as creation of the medical record PQRS Narrative: Smoking Status Current every day smoker Home Medications: Ambulatory Orders Albuterol Inhaler [Ventolin Hfa Inhaler] 1 - 2 puff INHALATION RT-Q4H PRN 07/15/13 Albuterol Nebulized [Ventolin Nebulized] 2.5 mg INHALATION RT-Q6H PRN 07/15/13 metFORMIN HCL [Glucophage] 1,000 mg PO DIRECTED 07/15/13 Simvastatin [Zocor] 40 mg PO HS 10/24/13 Montelukast [Singulair] 10 mg PO HS 02/18/14 QUEtiapine FUMARATE 800 mg PO HS 02/18/14 Divalproex [Depakote] 1,000 mg PO HS 10/29/15 Levothyroxine Sodium [Tirosint] 75 mcg PO DAILY 10/29/15 Loratadine [Claritin] 10 mg PO DAILY 10/29/15 Cyclobenzaprine [Flexeril] 5 mg PO TID PRN 06/22/23 Dicyclomine [Bentyl] 10 mg PO QID PRN 06/22/23 Empagliflozin [Jardiance] 25 mg PO DAILY 06/22/23 Ergocalciferol (Vitamin D2) [Drisdol (50,000 Iu)] 1,250 mcg PO MO 06/22/23 Fluticasone Nasal [place] [Flonase Nasal [place]] 1 spray EA NOSTRIL DAILY 06/22/23 Fluticasone/Umeclidin/Vilanter [[place] Ellipta 200-62.5-25] 1 puff INHALATION RT-DAILY 06/22/23 Linagliptin [Tradjenta] 5 mg PO DAILY 06/22/23 Omeprazole 40 mg PO AC-BRKFST 06/22/23 Pioglitazone [Actos] 30 mg PO DAILY 06/22/23 clonazePAM [KlonoPIN] 0.5 mg PO BID 06/22/23 rOPINIRole HCL [Requip] 4 mg PO HS 06/22/23 valACYclovir HCL [Valacyclovir] 2,000 mg PO BID PRN 06/22/23 HYDROcodone/APAP 5-325MG [[place] 5-325] 1 tab PO Q4HR PRN 3 Days #18 tab 11/13/23 Controlled Substance Measures - Controlled Substance Measures Is patient prescribed a controlled substance at discharge?: No
== END ==
LOC: PNWHC3 13:24
PROVIDERS: ATTEND Specialist
DX: M47.812 Spondylosis without myelopathy or radiculopathy, cervical region (principal); M47.27 Other spondylosis with radiculopathy, lumbosacral region; F17.210 Nicotine dependence, cigarettes, uncomplicated; Z88.8 Allergy status to other drugs, medicaments and biological substances; Z88.1 Allergy status to other antibiotic agents
CPT/HCPCS: 99211

== ENCOUNTER 2024-06-07 13:05 | Emergency (ER) | payer MEDICARE, OTHER ==
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
[2024-06-07] MEDS: HYDROcodone/APAP 5-325MG 1 EACH TAB PO STA (13:44)
[2024-06-07] MEDS: DIPH,PERTUS(ACELL)TETVAC-LF 0.5 ML VIAL IM ONE (13:45)
[2024-06-07 14:16] VITALS: RESP 18
--- NOTE | 2024-06-07 14:16 | XR ---
EXAMINATION TYPE: XR elbow limited LT DATE OF EXAM: 06/07/2024 2:09 PM COMPARISON: None CLINICAL INDICATION: Female, 63 years old with history of fall, pain; PHH, pain TECHNIQUE: XR elbow limited LT; elbow was examined in AP, lateral, and oblique projections. FINDINGS: There is subtle cortical step-off of the radial head seen on one view. There is a small félix nt effusion thought to be present. Triceps insertional enthesophyte. IMPRESSION: Subtle cortical step-off of the radial head intra-articular portion aren't seen on one view correlate for fracture consider CT. [facility], , 06/07/2024 2:13 PM
--- NOTE | 2024-06-07 14:17 | CT ---
EXAMINATION TYPE: CT brain cspine wo con, CT facial bones wo con CT DLP: 725 (accession [id number]), 224.8 (accession [id number]) mGycm, Automated exposure control for do se reduction was used. DATE OF EXAM: 06/07/2024 2:05 PM COMPARISON: CT Brain and cspine facial bones 06/22/2023, CT brain 11/18/2015 CLINICAL INDICATION:Female, 63 years old with history of fall, pain; FALL, PAIN TECHNIQUE: Brain: Multiple axial CT images of the brain were obtained without IV contrast. Cspine: Axial CT images from the skull base to the inferior aspect of T2 we obtained without intraven ous contrast. Coronal and sagittal reformatted images were also reviewed. Facial bones; axial CT images of the facial bones were obtained without contrast and soft tissue and bone windows. Coronal and sagittal reformatted images were also reviewed. FINDINGS: Brain: Extra-axial spaces: No abnormal extra-axial fluid collections. Ventricular system: Within normal limits Cerebral parenchyma: No acute intraparenchymal hemorrhage or mass effect. The dias-white junction is well differentiated. Cerebellum: Unremarkable. Mass effect: No evidence of midline shift. Intracranial vasculature: Atherosclerotic calcifications of the intracranial vessels. Soft tissues: Left supraorbital and left cheek mild soft tissue contusions. Calvarium: No depressed skull fracture. Benign hyperostosis frontalis noted. Paranasal sinuses and mastoid air cells: The mastoid air cells are clear. Minimal mucosal thickening in the left maxillary sinus. Postsurgical changes from bilateral maxillary antrostomy. Visualized orbits: Bilateral aphakia Cervical spine: Fracture: None. Osseous structures: Multilevel degenerative disc disease changes with endplate spurring and disc oste ophyte complex's. Prominent anterior osteophyte at C3-C4. Multilevel facet arthropathy. Partial fusio n of the left C4-C5 facet joint. Vertebral alignment: Within normal limits. Spinal canal/Neural Foramina: Disc osteophyte complexes at C5-C6 with at least mild spinal canal sten osis. Disc bulges that C3-C4 and C4-C5 results in mild spinal canal stenosis. Facet joint uncovertebr al joint arthropathy scattered throughout the cervical spine with varying degrees of neural foraminal stenosis. Neck soft tissues: Prevertebral soft tissues are within normal limits. Other: The airway is patent. Centrilobular and paraseptal emphysematous changes. Facial Bones: There is no evidence of fracture, subluxation, dislocation. Bilateral aphakia. No acute traumatic pro cess to the orbits or retroconal fat. Left supraorbital and left cheek mild soft tissue contusions. T he temporal-mandibular joints appear symmetric. Minimal mucosal thickening in the left maxillary sinu s. The remaining visualized portion of the paranasal sinuses appear clear. Postsurgical changes from bilateral maxillary antrostomy. IMPRESSION: 1. No acute intracranial process. 2. Left supraorbital and left cheek mild soft tissue contusions. 3. No acute facial bone fracture. 4. No evidence of cervical spine fracture. 5. Mild to moderate multilevel degenerative disc disease. [facility], , 06/07/2024 2:14 PM
--- NOTE | 2024-06-07 14:24 | XR ---
EXAMINATION TYPE: XR shoulder complete LT DATE OF EXAM: 06/07/2024 2:09 PM COMPARISON: None CLINICAL INDICATION: Female, 63 years old with history of fall, pain; PHH, pain TECHNIQUE: XR shoulder complete LT; examined in AP, internally rotated and scapular Y projections. FINDINGS: No evidence of acute osseous pathology, joint dislocation, or soft tissue swelling. The remaining po rtions of the visualized chest are unremarkable. Mild degeneration changes of the acromion and dista l clavicle. Rotator cuff repair anchors present. IMPRESSION: 1. No acute osseous pathology. 2. Mild shoulder osteoarthrosis. [facility], , 06/07/2024 2:22 PM
[2024-06-07] MEDS: ACET/COD 300 MG/30 MG STARTER PACK 6 TAB BTL PO STA (15:24)
[2024-06-07 15:28] VITALS: BP 125/79; PULSE 91; TEMP 98.7
== END 2024-06-07 15:28 | disposition home or self-care (01) ==
LOC: EC 13:05
DX: S52.122A Displaced fracture of head of left radius, initial encounter for closed fracture (principal); S05.02XA Injury of conjunctiva and corneal abrasion without foreign body, left eye, initial encounter; M97.42XA Periprosthetic fracture around internal prosthetic left elbow joint, initial encounter; F17.200 Nicotine dependence, unspecified, uncomplicated; Z86.73 Personal history of transient ischemic attack (TIA), and cerebral infarction without residual deficits; Z88.1 Allergy status to other antibiotic agents; Z88.8 Allergy status to other drugs, medicaments and biological substances; Z23 Encounter for immunization; W18.30XA Fall on same level, unspecified, initial encounter; Y93.01 Activity, walking, marching and hiking
CPT/HCPCS: 29105; 70450; 70486; 72125; 90471; 90715; 99284